=== PATIENT | female | born 1945 | race Caucasian/White ===

== ENCOUNTER 2020-09-23 17:20 | Emergency (ER) | payer SELFPAY ==
[2020-09-23] MEDS ORDERED: 50% Dextrose in Water 50 ML Syringe IVPUSH ONE (17:35)
[2020-09-23] MEDS ORDERED: 50% Dextrose in Water 50 ML Syringe ONE (17:36)
--- NOTE | 2020-09-23 17:41 | CT ---
EXAMINATION: Head wo Cont SEX: Female AGE: 75 years CLINICAL HISTORY: 75-year-old extremely confused female with right sided facial droop (CVA). Ambulance/ER. No previous studies immediately available at this institution. Scan technique: Volume acquisition of data emergency unenhanced CT scan of the head and brain obtained with patient lying supine on the Siemens multi slice scanner [place], [place]. All data archived in the PACS system for storage, reformatting axial/sagittal/coronal planes and study (bone/brain windows). Interpretation: 1. Large midline central suprasellar surgical clip (with associated intracranial "hardening" artifact). Aneurysm? Obtained scattered areas of decreased attenuation throughout the periventricular white matter (right frontal lobe, frontal parietal lobe on the left, right parietal lobe peripherally and posterior left parietal lobe). 2. No supratentorial or posterior fossa mass lesion. Mirror-image asymmetry of the ventricular system. 3. No sign of acute intracerebral, intraventricular or subarachnoid bleed. 4. Uniformly thick bony calvarium. No sign of skull fracture, underlying brain contusion or epidural/subdural hematoma. 5. Symmetric clear pneumatization of the mastoid and paranasal sinuses. 6. Cerebellum and brainstem unremarkable. CONCLUSION: Multi-infarct ischemic disease (both cerebral hemispheres). Suprasellar surgical clip. No sign of acute intracranial bleed. No intracranial mass or hydrocephalus.
[2020-09-23 18:02] LABS: ANION GAP 11.9 mEq/L (7-13); CHLORIDE,CL 100 mmol/L (98-107); SODIUM,NA 139 mmol/L (136-145)
[2020-09-23] MEDS ORDERED: Potassium Chloride 10 MEQ in Premix Bag 1 BAG IV ONE (18:14)
== END 2020-09-23 20:01 | disposition home or self-care (01) ==
LOC: EDBD → EDUNIT# 17:20 → DL.ED 17:20
DX: E11.649 Type 2 diabetes mellitus with hypoglycemia without coma (principal); E87.6 Hypokalemia; E03.9 Hypothyroidism, unspecified; I10 Essential (primary) hypertension; Z79.899 Other long term (current) drug therapy
CPT/HCPCS: 36415; 70450; 80053; 82947; 83605; 84484; 85025; 85610; 85651; 86140; 93005; 99285-25; J3480

== ENCOUNTER 2020-09-23 17:45 | Emergency (ER) | payer MEDICARE, BC ==
--- NOTE | 2020-09-23 18:39 | EDM.PDOC ---
<Kian Patricia - Last Filed: 09/23/20 19:06> ED HPI GENERAL MEDICAL PROBLEM - General Chief Complaint: Neuro Symptoms/Deficits Stated Complaint: AMBULANCE Time Seen by Provider: 09/23/20 17:45 Source of Information: Reports: Patient, Family History Limitations: Reports: No Limitations - History of Present Illness INITIAL COMMENTS - FREE TEXT/NARRATIVE: This 75 yo female patient was brought to the ED by [facility] due to altered mentation, right sided facial droop and slurred speech. The patient was at [facility] and walking to the vehicle when the patient reported she could not see, then she had slurred speech along with weakness to her right side. Upon arrival, the patient was disoriented and difficult to understand. When she returned from CT, the patient's blood sugar level was 56. The patient was given an amp of D50. After the medication, the patient was able to answer questions appropriately. The patient reports she does have diabetes and her blood sugar levels normally run in the 200's. Onset: Today Duration: Minutes: Location: Reports: Head Quality: Reports: Other Severity: Moderate Improves with: Reports: None Worsens with: Reports: None Associated Symptoms: Reports: No Other Symptoms - Related Data Allergies Allergy/AdvReac Type Severity Reaction Status Date / Time No Known Allergies Allergy Verified 09/23/20 18:28 Past Medical History HEENT History: Reports: Hard of Hearing Cardiovascular History: Reports: Hypertension Respiratory History: Reports: Asthma Gastrointestinal History: Reports: Other (See Below) Other Gastrointestinal History: Possible irritable bowel syndrome due to fecal urgency. Neurological History: Reports: Cerebral Aneurysms Endocrine/Metabolic History: Reports: Diabetes, Type II, Hypothyroidism - Past Surgical History HEENT Surgical History: Reports: None Cardiovascular Surgical History: Reports: Carotid Stents Respiratory Surgical History: Reports: None GI Surgical History: Reports: None Endocrine Surgical History: Reports: Parathyroidectomy, Thyroidectomy Neurological Surgical History: Reports: Other (See Below) Other Neurological Surgeries/Procedures: Aneurysm clip 2013 Social & Family History - Family History Family Medical History: No Pertinent Family History ED ROS GENERAL - Review of Systems Review Of Systems: Comprehensive ROS is negative, except as noted in HPI. ED EXAM, NEURO - Physical Exam Exam: See Below Exam Limited By: No Limitations General Appearance: Alert, WD/WN, Moderate Distress Eye Exam: Bilateral Eye: EOMI, Normal Inspection, PERRL Ears: Normal External Exam Nose: Normal Inspection, Normal Mucosa, No Blood Throat/Mouth: Normal Inspection, Normal Lips, Normal Teeth, Normal Gums, Normal Oropharynx, Normal Voice, No Airway Compromise Head Exam: Atraumatic, Normocephalic Neck: Normal Inspection, Supple, Non-Tender, Full Range of Motion Respiratory/Chest: No Respiratory Distress, Lungs Clear, Normal Breath Sounds, No Accessory Muscle Use, Chest Non-Tender Cardiovascular: Normal Peripheral Pulses, Regular Rate, Rhythm, No Edema, No Gallop, No JVD, No Murmur, No Rub GI/Abdominal: Normal Bowel Sounds, Soft, Non-Tender, No Organomegaly, No Distention, No Abnormal Bruit, No Mass (Female) Exam: Deferred Rectal (Female) Exam: Deferred Neurological: Alert, Normal Mood/Affect, Normal Dorsiflexion, CN II-XII Intact, Normal Plantar Flexion, Normal Gait, Normal Reflexes, No Motor/Sensory Deficits, Oriented x 3 Back Exam: Normal Inspection, Full Range of Motion, NT Extremities: Normal Inspection, Normal Range of Motion, Non-Tender, No Pedal Edema, Normal Capillary Refill Psychiatric: Normal Affect, Normal Mood Skin Exam: Warm, Dry, Intact, Normal Color, No Rash #1 Interpretation EKG Date: 09/23/20 Time: 17:39 Rhythm: Other (Right Bundle Branch Block) Rate (Beats/Min): 64 [place]: Normal P-Wave: Present QRS: Normal ST-T: Normal QT: Normal Comparison: NA - No Prior EKG Departure - Departure Disposition: Home, Self-Care 01 Clinical Impression: Hypoglycemia, Hypokalemia - Discharge Information Instructions: Hypokalemia, Hypoglycemia, [id number] Forms: ED Department Discharge Additional Instructions: monitor blood sugars recheck clinic 1-2 days diet as tolerated light activity 24 hours <Freida Wagner - Last Filed: 09/23/20 19:53> Course - Vital Signs Last Recorded V/S: Last Vital Signs Temp 98.0 F 09/23/20 18:28 Pulse 64 09/23/20 18:28 Resp 15 09/23/20 18:28 BP 145/71 H 09/23/20 18:28 Pulse Ox 95 09/23/20 18:28 - Orders/Labs/Meds Orders: Active Orders 24 hr Category Date Time Status Blood Glucose Check, Bedside [RC] ONETIME Care 09/23/20 19:28 Active Labs: Laboratory Tests 09/23/20 09/23/20 09/23/20 Range/Units 17:51 18:48 19:33 POC Glucose 175 H 132 H 178 H (70-99) mg/dL Departure - Departure Time of Disposition: 19:53 Condition: Good - Discharge Information *PRESCRIPTION DRUG MONITORING PROGRAM REVIEWED*: No *COPY OF PRESCRIPTION DRUG MONITORING REPORT IN PATIENT MONICA: No Sepsis Event Note (ED) - Focused Exam Vital Signs: Vital Signs Temp Pulse Resp BP Pulse Ox 09/23/20 18:28 98.0 F 64 15 145/71 H 95 - My Orders Last 24 Hours: My Active Orders 09/23/20 19:28 Blood Glucose Check, Bedside [RC] ONETIME - Assessment/Plan Last 24 Hours: My Active Orders 09/23/20 19:28 Blood Glucose Check, Bedside [RC] ONETIME
== END 2020-09-23 20:01 | disposition home or self-care (01) ==
LOC: DL.ED 17:45
DX: E11.649 Type 2 diabetes mellitus with hypoglycemia without coma (principal); E87.6 Hypokalemia; E03.9 Hypothyroidism, unspecified; I10 Essential (primary) hypertension; Z79.899 Other long term (current) drug therapy
CPT/HCPCS: 82947; 99285